=== PATIENT | female | born 1965 | race Caucasian/White ===

== ENCOUNTER 2023-11-06 06:34 | Day surgery (SDC) | payer BC, SELFPAY ==
[2023-11-06] VITALS (9 sets, daily range): BP systolic 105–133; BP diastolic 54–74; BMI 22.9
[2023-11-06] MEDS: NORMOSOL-R 1000 IV (07:37)
[2023-11-06] MEDS: DILAUDID 0.25 MG IV (09:01)
[2023-11-06] MEDS: TYLENOL 650 MG PO (10:11)
== END 2023-11-06 10:43 | disposition home or self-care (01) ==
LOC: SDS 06:34
PROVIDERS: ATTENDING PHYSICIAN Otolaryngology
DX: H61.21 Impacted cerumen, right ear (principal); H92.01 Otalgia, right ear
CPT/HCPCS: 69210